=== PATIENT | female | born 1980 ===

== ENCOUNTER 2021-04-01 17:08 | Emergency (ER) | payer SELFPAY ==
[2021-04-01] MEDS ORDERED: SODIUM CHLORIDE 0.9% 1000 ML 1,000 ML IV ONE (19:31)
--- NOTE | 2021-04-01 19:37 | Emergency Department Report ---
ED General Adult HPI - General Chief complaint: Headache Stated complaint: HEADACHE Time Seen by Provider: 04/01/21 19:25 Source: patient Mode of arrival: Ambulatory Limitations: No Limitations - History of Present Illness Initial comments: 40-year-old female patient presents to the emergency department with complaints of nontraumatic headache with associated nausea and vomiting for 4 weeks. Patient has been taking Tylenol and Naprosyn for her headaches. These medications have been helpful in relieving her headaches until today. She states the medications are no longer working. She has not been evaluated by her primary care provider since her headaches began. Patient has no history of prior similar headaches. Headache is diffuse and constant without identifiable exacerbating or relieving factors. Unsure of last menstrual period. Denies fever, neck pain, rash, vision changes, dizziness, syncope, seizure. Denies all other complaints at this time. - Related Data Previous Rx's Medication Instructions Recorded Last Taken Type Aspirin/Acetaminophen/Caffeine 1 each PO BID #20 tablet 04/01/21 Unknown Rx [[facility] Migraine Relief Caplet] Ondansetron [Zofran Odt] 4 mg PO Q4H #20 tab.rapdis 04/01/21 Unknown Rx Allergies Allergy/AdvReac Type Severity Reaction Status Date / Time No Known Allergies Allergy Verified 04/01/21 17:23 ED Review of Systems ROS: Stated complaint: HEADACHE Other details as noted in HPI Other: GENERAL: Negative for fever, chills, weight change, anorexia, fatigue. ENT: Negative for ear pain, difficulty hearing, sore throat, nasal congestion, epistaxis. CARDIOVASCULAR: Negative for chest pain, palpitations, lower extremity swelling. PULMONARY: Negative for cough, dyspnea, wheezing, orthopnea, cyanosis. GASTROINTESTINAL: Positive for nausea and vomiting. MUSCULOSKELETAL: Negative for joint pain, joint swelling, myalgias, back pain, neck pain. NEUROLOGICAL: Positive for headache. INTEGUMENTARY: Negative for erythema, rash, diaphoresis, laceration, ecchymosis. HEMATOLOGICAL: Negative for hemoptysis, hematemesis, hematochezia, hematuria. PSYCHIATRIC: Negative for hallucinations, suicidal ideation, homicidal ideation, anxiety, depression. ED Past Medical Hx - Medications Home Medications: Home Medications Medication Instructions Recorded Confirmed Last Taken Type Aspirin/Acetaminophen/Caffeine 1 each PO BID #20 tablet 04/01/21 Unknown Rx [[facility] Migraine Relief Caplet] Ondansetron [Zofran Odt] 4 mg PO Q4H #20 tab.deloresdis 04/01/21 Unknown Rx ED Physical Exam - General Limitations: No Limitations - Other Other exam information: General: Awake and alert. No acute distress. Head: Atraumatic, normocephalic. No temporal artery tenderness. Eyes: EOMI. Pupils are equal and round, reactive to light, no nystagmus. Normal sclera and conjunctiva. ENT: Oral mucosa is moist. Normal pharyngeal exam. Neck: Supple. No lymphadenopathy. Pulmonary: No respiratory distress. Clear to auscultation bilaterally. Cardiac: Regular rate and rhythm. Pulses are palpable and equal bilaterally. No lower extremity cyanosis or edema. Skin: Warm and dry. No rashes. Abdomen: Soft, non-tender, non-protuberant. No guarding, rigidity, or rebound. Bowel sounds are normal. No organomegaly or masses noted. Back: Normal alignment. No CVA tenderness. Extremities: Symmetrical. Full range of motion intact. Neurological: Alert and oriented, appropriately interactive, no focal deficits. Strength and sensation intact throughout. Psych: Cooperative. Appropriate mood and affect. Speech is evenly metered. Thoughts are logically construed. ED Course Vital Signs 04/01/21 17:21 Temperature 98.5 F Pulse Rate 77 Respiratory 18 Rate Blood Pressure 115/72 [Left] O2 Sat by Pulse 100 Oximetry ED Medical Decision Making - Lab Data Result diagrams: 04/01/21 19:37 04/01/21 19:37 - Medical Decision Making Differential diagnosis including but not limited to: intracranial hemorrhage, migraine headache, tension headache, cluster headache, pseudotumor cerebri, space-occupying lesion, dehydration, electrolyte abnormality CT head indication: Subarachnoid hemorrhage cannot be clinically ruled out in this patient per [place] SAH rule due to age >40. On reevaluation, patient is stable and symptoms have improved. Repeat neurological exam is nonfocal. CT head without acute process. Labs are unremarkable. Currently, patient states her pain is much better than it was on arrival to the ED. Onset of headache was gradual. There is no associated neck pain or stiffness. No LOC. Patient is not anticoagulated. No history of hypertension. The patient is alert, talkative, interactive and in no distress. The patient is neurovascularly intact and ambulatory in emergency department. History, exam, diagnostic testing, and current condition do not suggest worrisome pathology to warrant further testing, emergent intervention, admission, or specialist evaluation at this point. Additional testing such as lumbar puncture is not indicated at this time, but should be considered if symptoms worsen or recur. Discussed findings, presumptive diagnosis, need for follow-up and specific signs/symptoms that should prompt immediate return to the emergency department. Instructions were explained in detail to the patient in addition to giving written discharge information. Patient expressed understanding and was given the opportunity to ask questions, all of which were satisfactorily answered prior to discharge home. Critical care attestation.: If time is entered above; I have spent that time in minutes in the direct care of this critically ill patient, excluding procedure time. ED Disposition Clinical Impression: Chronic headache Qualifiers: Headache type: unspecified Intractability: not intractable Qualified Code(s): R51.9 - Headache, unspecified; G89.29 - Other chronic pain Disposition: HOME / SELF CARE / HOMELESS Is pt being admited?: No Does the pt Need Aspirin: No Condition: Stable Instructions: General Headache Without Cause Additional Instructions: Take Excedrin as directed for headache. Take Zofran as directed for nausea/vomiting. Rest. Drink plenty of fluids. Avoid bright lights and loud noises which may worsen your headache. Gradually advance physical activity slowly as tolerated. Follow-up with primary care provider this week. Call tomorrow to schedule appointment. See referral information below. Return to the emergency department immediately for new or worsening symptoms. Specifically, return to the emergency department immediately for worsening headache, vision changes, seizure, loss of consciousness, neck pain/stiffness, numbness, weakness, or any other concerns. Prescriptions: Aspirin/Acetaminophen/Caffeine [[facility] Migraine Relief Caplet] 1 each PO BID #20 tablet Ondansetron [Zofran Odt] 4 mg PO Q4H #20 tab.rapdis Referrals: CRISTIAN BOWEN MD [Staff Physician] - 3-[address] [facility] [Provider Group] - 3-5 Days Time of Disposition: 21:41
[2021-04-01 19:53] LABS: Basophils % (Auto) 0.3 % (0.0-1.8); Eosinophils # (Auto) 0.1 K/mm3 (0.0-0.4); Eosinophils % (Auto) 0.9 % (0.0-4.3); Hematocrit 37.1 % (30.3-42.9); Hemoglobin 13.3 gm/dl (10.1-14.3); Lymphocytes # (Auto) 2.5 K/mm3 (1.2-5.4); Lymphocytes % (Auto) 36.9 % (13.4-35.0); Mean Corpuscular HGB Conc 36 % (30-34); Mean Corpuscular Volume 91 fl (79-97); Monocytes # (Auto) 0.4 K/mm3 (0.0-0.8); Monocytes % (Auto) 5.6 % (0.0-7.3); Platelet Count 305 K/mm3 (140-440); Red Blood Count 4.07 M/mm3 (3.65-5.03); Red Cell Distribution Width 13.9 % (13.2-15.2)
[2021-04-01] MEDS ORDERED: methylPREDNISolone Sod Suc 125 MG in SODIUM CHLORIDE 0.9% 100 ML IV ONE (20:00)
[2021-04-01 20:09] LABS: Alanine Aminotransferase 14 units/L (7-56); Albumin 4.3 g/dL (3.9-5); Blood Urea Nitrogen 11 mg/dL (7-17); Calcium 9.2 mg/dL (8.4-10.2); Hemolysis Index 16
[2021-04-01 20:27] LABS: BUN/Creatinine Ratio 22
[2021-04-01] MEDS ORDERED: MAGNESIUM SULFATE 1 GM in SODIUM CHLORIDE 0.9% 50 ML IV ONE (20:31)
--- NOTE | 2021-04-01 21:08 | Cat Scan Report ---
CT HEAD WITHOUT CONTRAST INDICATION / CLINICAL INFORMATION: headache + vomiting x4 weeks. TECHNIQUE: All CT scans at this location are performed using CT dose reduction for ALARA by means of automated exposure control. COMPARISON: None available. FINDINGS: BRAIN PARENCHYMA: No acute intracranial hemorrhage. No evidence of recent infarct. No mass effect or midline shift. VENTRICULAR SYSTEM/EXTRA-AXIAL SPACES: Ventricles are normal for age. No extra-axial fluid collection . ORBITS: Normal as visualized. SKELETAL SYSTEM/SOFT TISSUES: Normal bones and soft tissues. PARANASAL SINUSES/MASTOID AIR CELLS: No significant abnormality. ADDITIONAL FINDINGS: None. IMPRESSION: 1. No acute intracranial abnormality. Signer Name: Sumit Arthur MD Signed: 04/01/2021 9:03 PM Workstation Name: [id number]
[2021-04-01 21:35] VITALS: BP 128/82
== END 2021-04-01 22:30 | disposition home or self-care (01) ==
LOC: ED 17:08
DX: R51.9 Headache, unspecified (principal); R11.2 Nausea with vomiting, unspecified
CPT/HCPCS: 36415; 70450; 80053; 84703; 85025; 96365; 99284; J2930; J3475; J7030

== ENCOUNTER 2021-11-28 20:27 | Outpatient (CLI) | payer SELFPAY ==
[2021-11-28 20:46] VITALS: BP 122/65
[2021-11-28] MEDS ORDERED: LACTATED RINGERS 1,000 ML ONE (20:50)
[2021-11-28] MEDS ORDERED: LACTATED RINGERS 1,000 ML IV ONE (20:59)
[2021-11-28] MEDS ORDERED: LACTATED RINGERS 500 ML IV ONE (21:04)
[2021-11-28 22:43] LABS: Basophils % (Auto) 0.2 % (0.0-1.8); Eosinophils # (Auto) 0.1 K/mm3 (0.0-0.4); Eosinophils % (Auto) 0.9 % (0.0-4.3); Hemoglobin 11.5 gm/dl (10.1-14.3); Lymphocytes # (Auto) 2.1 K/mm3 (1.2-5.4); Lymphocytes % (Auto) 22.2 % (13.4-35.0); Monocytes # (Auto) 0.7 K/mm3 (0.0-0.8); Monocytes % (Auto) 7.8 % (0.0-7.3)
[2021-11-28 22:50] LABS: Bacteria,Urine 1+ /HPF (Negative); Bilirubin,Urine NEG (Negative); Blood,Urine NEG (Negative); Color,Urine Yellow (Yellow); Mucus,Urine FEW /HPF; Protein,Urine <15 mg/dL mg/dL (Negative); RBC,Urine < 1.0 /HPF (0.0-6.0)
[2021-11-28 23:04] LABS: Alanine Aminotransferase 12 units/L (7-56); Albumin 3.5 g/dL (3.9-5); Blood Urea Nitrogen 10 mg/dL (7-17); Calcium 8.8 mg/dL (8.4-10.2); Hemolysis Index 0
[2021-11-28 23:07] LABS: BUN/Creatinine Ratio 20
[2021-11-28 23:20] LABS: Hematocrit 32.9 % (30.3-42.9); Mean Corpuscular HGB Conc 35 % (30-34); Mean Corpuscular Volume 93 fl (79-97); Platelet Count 321 K/mm3 (140-440); Red Blood Count 3.56 M/mm3 (3.65-5.03); Red Cell Distribution Width 13.6 % (13.2-15.2)
[2021-11-28] MEDS ORDERED: ceFAZolin/NS 1 GM/50 ML 1 GM/50 ML BAG IV ONE (23:24)
[2021-11-28] MEDS ORDERED: TERBUTALINE 1 MG/1 ML INJ ONE (23:25)
[2021-11-28] MEDS ORDERED: ceFAZolin/Water 2 GM/20 ML 2 GM/20 ML SYRINGE IV ONE (23:30)
--- NOTE | 2021-11-28 23:48 | Ultrasound Report ---
US OB BPP wo non-stress INDICATION / CLINICAL INFORMATION: bpp COMPARISON: None available. TECHNIQUE: Using a transcutaneous probe, biophysical profile was performed with multiple graysc shaylee images of the fetus captured and stored measurement of biophysical variables including resp iration, renal motion, posture and tone, and qualitative amniotic fluid volume. FINDINGS: BREATHING MOVEMENT = 2 GROSS BODY MOVEMENT = 2 TONE = 2 QUALITATIVE AMNIOTIC FLUID VOLUME = 2 TOTAL BIOPHYSICAL SCORE = 8/8 The single cephalic fetus demonstrates heart rate of 156 bpm. IMPRESSION: 1. Normal biophysical profile. Signer Name: Marcial Hughes II, MD Signed: 11/28/2021 11:44 PM Workstation Name: [id number]
[2021-11-28] MEDS ORDERED: ceFAZolin/STERILE WATER 2 GM/20 ML SYRINGE IV ONE (23:51)
[2021-11-28] MEDS ORDERED: TERBUTALINE 1 MG/1 ML INJ SUB-Q ONE (23:57)
--- NOTE | 2021-11-29 00:45 | Event Note ---
Date: 11/29/21 at 28.4wks with care at [facility] came thru triage with c/o of pelvic pressure and ctx x4hrs today. Pt had appropriate fundal height and FHR reassuring, BPP 8/8 with adequate fluid. Pt was given IV hydration, brethine x1 and ancef 2gm IV with good effect and contractions abated. Labs were also done with neg FFN and normal CBC and CMP. Of note, random glucose with pt having Gest DM controlled with diet only. Manufacturing Worker #[id number] used when pt was interviewed both Nurse supervisor fabrication and Truck Body Repairer present. All questions en couraged and answered. Script for macrobid sent electronically to pharm on file with advise for pt to follow up in her clinic in one wk.
--- NOTE | 2021-12-01 10:39 | Ultrasound Report ---
US OB limited INDICATION / CLINICAL INFORMATION: for ABRIL, placental location and rule out abruption COMPARISON: None available. TECHNIQUE: Using a transcutaneous probe, multiple grayscale, color Doppler, and spectral Doppler imag es of the uterus and fetus were captured and stored. FINDINGS: Single cephalic fetus with heart rate of 156 bpm is demonstrated. The amniotic fluid is within normal limits, ABRIL of 9.5 cm. Grade 1 fundal placenta demonstrates no abnormality of the placental margin. Biparietal Diameter = 7.63 cm = 30, 4 weeks, days Head Circumference = 27.4 cm = 30, 0 weeks, days Abdominal Circumference = 28.7 cm = 32, 5 weeks, days Femur Length = 5.71 cm = 30, 0 weeks, days Average Ultrasound Age (AUA) = 30, 6 weeks, days. EDC 01/30/2022. Clinical estimated gestational age is 28 weeks 4 days. Estimated weight = 1765 g.. IMPRESSION: 1. No ultrasound evidence of placental abruption. 2. Single live fetus as detailed. Signer Name: Marcial Hughes II, MD Signed: 11/28/2021 10:45 PM Workstation Name: [id number]
== END 2021-11-29 00:50 | disposition home or self-care (01) ==
LOC: TRG 20:27 → LD 20:28 → TRG 11-29 00:50
PROVIDERS: ATTEND Obstetrics & Gynecology
DX: O62.9 Abnormality of forces of labor, unspecified (principal); O26.893 Other specified pregnancy related conditions, third trimester; R10.2 Pelvic and perineal pain; O09.523 Supervision of elderly multigravida, third trimester; O24.419 Gestational diabetes mellitus in pregnancy, unspecified control; Z3A.29 29 weeks gestation of pregnancy
CPT/HCPCS: 36415; 59025; 76816; 76819; 80053; 81001; 82731; 85025; 96360; 96372; J3105; J7120